=== PATIENT | female | born 1960 ===

== ENCOUNTER 2021-07-26 08:11 | Emergency (ER) | payer MEDICAID ==
[~2021-07-26] VITALS: Ht 154.9 cm; Wt 54.4 kg
[2021-07-26 08:38] VITALS: BP 119/64
== END 2021-07-26 09:25 | disposition home or self-care (01) ==
LOC: ER 08:11
DX: S53.402A Unspecified sprain of left elbow, initial encounter (principal); F17.210 Nicotine dependence, cigarettes, uncomplicated; W22.8XXA Striking against or struck by other objects, initial encounter; Y93.89 Activity, other specified; Y92.89 Other specified places as the place of occurrence of the external cause; Y99.8 Other external cause status
CPT/HCPCS: 29105; 73080